=== PATIENT | female | born 1985 | race Caucasian/White ===

== ENCOUNTER 2017-02-14 12:36 | Emergency (ER) | payer MEDICAID ==
[~2017-02-14] VITALS: Wt 56.5 kg
[2017-02-14] MEDS ORDERED: ONDANSETRON 4 MG INJ IV STA (13:04)
[2017-02-14] MEDS ORDERED: ACETAMINOPHEN 325 MG TAB PO ONE (13:30)
[2017-02-14] MEDS ORDERED: SOD CHLORIDE 0.9% 1,000 ML IV ONE (13:30)
[2017-02-14] MEDS ORDERED: CEFTRIAXONE 1 GM/50 ML (PMX) 50 ML IVPB ONE (13:30)
[2017-02-14 14:00] LABS: BASOPHILS % 0.2 % (0.0-2.0); EOSINOPHILS # 0.1 10^3/ul (0.0-0.5); EOSINOPHILS % 0.5 % (0.0-7.0); HEMATOCRIT 41.5 % (37.0-47.0); HEMOGLOBIN 14.3 g/dl (12.0-16.0); LYMPHOCYTES # 1.2 10^3/ul (0.8-2.9); LYMPHOCYTES % 8.8 % (15.0-51.0); MEAN CORPUSCULAR HGB CONC 34.5 g/dl (32.0-37.0); MEAN PLATELET VOLUME 9.8 fl (7.4-10.4); MONOCYTE # 0.7 10^3/ul (0.3-0.9); MONOCYTES % 5.3 % (0.0-11.0); NEUTROPHIL # 11.2 10^3/ul (1.6-7.5); NEUTROPHILS % 84.7 % (39.0-77.0); PLATELET COUNT 300 10^3/UL (140-415); RED BLOOD COUNT 4.61 10^6/ul (4.20-5.40); RED CELL DISTRIBUTION WIDTH 12.5 % (11.5-14.5); WHITE BLOOD COUNT 13.2 10^3/ul (4.8-10.8)
[2017-02-14 14:04] LABS: ADD UMIC YES; UR ASCORBIC ACID NEGATIVE (NEGATIVE); UR BILIRUBIN (Dip) NEGATIVE (NEGATIVE); UR BLOOD (Dip) 1+ mg/dL (NEGATIVE); UR CLARITY CLEAR (CLEAR); UR COLOR YELLOW (YELLOW); UR GLUCOSE (Dip) NEGATIVE (NEGATIVE); UR KETONES (Dip) NEGATIVE (NEGATIVE); UR LEUKOCYTE ESTERASE (Dip) NEGATIVE Leu/ul (NEGATIVE); UR MUCUS FEW /HPF (NONE SEEN); UR NITRITE (Dip) NEGATIVE (NEGATIVE); UR RBC 8 /HPF (0-5); UR SPECIFIC GRAVITY (Dip) 1.021 (1.003-1.030); UR TOTAL PROTEIN (Dip) NEGATIVE (NEGATIVE); UR UROBILINOGEN (Dip) NEGATIVE (NEGATIVE)
[2017-02-14 14:27] LABS: ALBUMIN 5.2 g/dl (3.3-4.9); ALBUMIN/GLOBULIN RATIO 1.44; BILIRUBIN,INDIRECT 1.2 mg/dl (0-1.1); BILIRUBIN,TOTAL 1.2 mg/dl (0.2-1.3); CALCIUM 9.7 mg/dl (8.4-10.2); CREATININE 0.64 mg/dl (0.44-1.00); POTASSIUM 3.7 mmol/L (3.5-5.1); TOTAL PROTEIN 8.8 g/dl (6.1-8.1)
[2017-02-14] MEDS ORDERED: CEPH-443 PO (14:49)
[2017-02-14] MEDS ORDERED: ACET500C5 PO (14:49)
[2017-02-14 15:06] VITALS: BP 90/51; PULSE 85; RESP 16; TEMP 98.9
--- NOTE | 2017-02-14 15:37 | ERD ---
ER Documentation Chief Complaint Date/Time DATE: 02/14/17 TIME: 15:30 Chief Complaint N/V X 2 DAYS HPI 31-year-old female is complaining of chills and body aches since yesterday. She had vomited 3 times. She vomits after drinking water. Denies dysuria. Denies cough or runny nose. Denies diarrhea. Patient has a 4-month-old infant , is currently breast-feeding. When asked, she admits to have right breast pain. ROS All systems reviewed and are negative except as per history of present illness. Medications Home Meds Active Scripts Cephalexin* (Keflex*) 500 Mg Capsule, 500 MG PO QID for 7 Days, CAP Prov:ALISSA STEWART. [employer] 02/14/17 Acetaminophen* (Tylophen*) 500 Mg Capsule, 1 CAP PO Q6H Y for PAIN AND OR ELEVATED TEMP, #20 CAP Prov:ALISSA STEWART. [employer] 02/14/17 Allergies Allergies: Coded Allergies: No Known Allergy (Unverified , 02/14/17) PMhx/Soc Medical and Surgical Hx: pt denies Medical Hx Physical Exam Vitals Vital Signs Date Time Temp Pulse Resp B/P Pulse Ox O2 Delivery O2 Flow Rate FiO2 02/14/17 15:06 98.9 85 16 90/51 99 Room Air 02/14/17 12:43 103.2 100 18 112/68 99 Physical Exam General: Well-developed, well-nourished, conscious and coherent, in no distress Skin: Warm and dry without rash, good texture and turgor Head: Normocephalic without evidence of trauma Eyes: Sclera and conjunctivae normal; pupils equal, round, and reactive to light; extraocular movements are intact Chest: Normal AP diameter. Good expansion without retractions. Nontender. Lungs are clear to auscultate bilaterally with good tidal volume Heart: Regular rate and rhythm. No murmur, rub, or gallops heard Breast: Splotchy erythema noted on the medial aspect the right breast, warm to touch. Abdomen: Soft and nontender without masses, guarding, or rebound. Bowel sounds are active. No hepatosplenomegaly Back: Without spinal or CVA tenderness Pelvis: Suprapubic tenderness. Extremities: Full range of motion. Good strength bilaterally. No clubbing, cyanosis, or edema. Peripheral pulses are intact. Sensation intact Neuro: Alert and oriented 4, GCS 15. Cranial nerves grossly intact. Motor and sensory exams nonfocal. Moves all extremities. Speech clear. Gait normal Result Diagram: 02/14/17 1335 02/14/17 1335 Results 24 hrs Laboratory Tests Test 02/14/17 13:16 02/14/17 13:35 Urine Color YELLOW Urine Clarity CLEAR Urine pH 6.0 Urine Specific [place] 1.021 Urine Ketones NEGATIVEmg/dL Urine Nitrite NEGATIVEmg/dL Urine Bilirubin NEGATIVEmg/dL Urine Urobilinogen NEGATIVEmg/dL Urine Leukocyte Esterase NEGATIVELeu/ul Urine Microscopic RBC 8/HPF Urine Microscopic WBC 2/HPF Urine Mucus FEW/HPF Urine Hemoglobin 1+mg/dL Urine Glucose NEGATIVEmg/dL Urine Total Protein NEGATIVEmg/dl White Blood Count 13.210^3/ul Red Blood Count 4.6110^6/ul Hemoglobin 14.3g/dl Hematocrit 41.5% Mean Corpuscular Volume 90.0fl Mean Corpuscular Hemoglobin 31.0pg Mean Corpuscular Hemoglobin Concent 34.5g/dl Red Cell Distribution Width 12.5% Platelet Count 21145^3/UL Mean Platelet Volume 9.8fl Neutrophils % 84.7% Lymphocytes % 8.8% Monocytes % 5.3% Eosinophils % 0.5% Basophils % 0.2% Nucleated Red Blood Cells % 0.0/100WBC Neutrophils # 11.210^3/ul Lymphocytes # 1.210^3/ul Monocytes # 0.710^3/ul Eosinophils # 0.110^3/ul Basophils # 0.010^3/ul Nucleated Red Blood Cells # 0.010^3/ul Sodium Level 143mmol/L Potassium Level 3.7mmol/L Chloride Level 97mmol/L Carbon Dioxide Level 26mmol/L Anion Gap 24 Blood Urea Nitrogen 9mg/dl Creatinine 0.64mg/dl Glucose Level 96mg/dl Calcium Level 9.7mg/dl Total Bilirubin 1.2mg/dl Direct Bilirubin 0.00mg/dl Indirect Bilirubin 1.2mg/dl Aspartate Amino Transf (AST/SGOT) 24IU/L Alanine Aminotransferase (ALT/SGPT) 31IU/L Alkaline Phosphatase 103IU/L Total Protein 8.8g/dl Albumin 5.2g/dl Globulin 3.60g/dl Albumin/Globulin Ratio 1.44 Current Medications Medications (Trade) Dose Ordered Sig/Sherry Route PRN Reason Start Time Stop Time Status Last Admin Dose Admin Sodium Chloride (NS) 1,000 ml @ 1,000 mls/hr Q1H ONCE IV 02/14/17 13:30 02/14/17 14:29 DC 02/14/17 13:39 Acetaminophen 650 mg 650 mg ONCE ONCE PO 02/14/17 13:30 02/14/17 13:31 DC 02/14/17 13:39 Ceftriaxone Sodium (Rocephin) 50 ml @ 100 mls/hr ONCE ONCE IVPB 02/14/17 13:30 02/14/17 13:59 DC 02/14/17 13:39 Ondansetron HCl (Zofran Inj) 4 mg ONCE STAT IV 02/14/17 13:04 02/14/17 13:06 DC 02/14/17 13:39 Procedures/MDM 31-year-old female presented ED was fever, body ache, nausea and vomiting. Patient is noted to have mastitis on exam. Tylenol, Rocephin IV piggyback, 1 L normal saline bolus, and Zofran IV is given to the patient in the ED. CBC, CMP , UA was also obtained. All are unremarkable. Patient does not have any UTI or sepsis. Patient appears well after medication, stable for discharge and outpatient management. Medical decision making shared with patient and family. Education provided to patient and family. Patient and family expressed understanding of the plan. Medications on discharge: Keflex, Tylenol. Follow-up: Primary care provider in 2-3 days or return to ED if worse. Disclaimer: Inadvertent spelling and grammatical errors are likely due to EHR/ dictation software use and do not reflect on the overall quality of patient care. Also, please note that the electronic time recorded on this note does not necessarily reflect the actual time of the patient encounter. Departure Diagnosis: Primary Impression: Mastitis Condition: Stable Patient Instructions: Mastitis Ref[facility]: [facility] Usted se gonzalez hecho un examen mdico de control que le indica que no est en jarek condicin que requiera tratamiento urgente en el Departamento de Emergencia. Un estudio ms profundo y el tratamiento de adler condicin pueden esperar sin ningn riesgo hasta que usted sea atendida/o en el consultorio de adler mdico o jarek cl deisi. Es responsabilidad suya arreglar jarek gal para el seguimiento del alison. MANEJO DE CONDICIONES NO URGENTES EN EL FUTURO 1) Si usted tiene un mdico de atencin primaria: Usted debera llamar a adler mdico de atencin primaria antes de venir al departamento de emergencia. Despus de las horas de consultorio, adler doctor o adler asociado/a est disponible por telfono. El mdico o enfermero de [place] en el servicio telefnico puede asesorarle por nida medio para atender el problema, o alison contrario se puede programar jarek gal. 2) Si usted no tiene un mdico de atencin primaria: Llame al mdico o clnica de referencia que aparece abajo letty las horas de consultorio para hacer jarek gal para que le vean. CLINICAS: [facility] [phone] [facility] [phone] [facility]. [facility] [phone] [facility] [facility] [phone] [facility]. [place] [phone] [facility]. [phone] [address] Additional Instructions: Llame al doctor MAANA y melody jarek GAL PARA DENTRO DE 2-3 KENNEDY.Dgale a la secretaria que nosotros le instruimos hacer esta gal.Avise o llame si adler condicin se empeora antes de la gal. Regresa aqui si peor o no mejor. ALISSA STEWART NP Feb 14, 2017 15:37
== END 2017-02-14 15:05 | disposition home or self-care (01) ==
LOC: FTE 12:36
DX: N61.0 Mastitis without abscess (principal); R40.2412 Glasgow coma scale score 13-15, at arrival to emergency department; R50.9 Fever, unspecified
CPT/HCPCS: 80053; 81001; 85025; 87086; 96374; 96375; J0696; J2405; J7030; Z7502; Z7610